=== PATIENT | male | born 1945 | race Caucasian/White ===

== ENCOUNTER → 2022-03-13 | Outpatient (CLI) | payer OTHER, SELFPAY ==
[~2022-03-13] MED LIST: AVALIDE 300-121 EACH PO; CARDURA 2MG TAB2 MG PO; CATAPRES 0.1MG0.1 MG PO; CO Q-10200 MG PO; ECOTRIN81 MG PO; FERROUS SULFAT325 M2 PO; HYDRALAZINE HCL25 MG PO; HYDRALAZINE HCL50 MG PO; ISOSORBIDE MONO30 MG PO; JANUMET 50-1,01 EACH PO; LANTUS INS100 UTS/M1 SC; LANTUS100 UNIT/1 SQ; LASIX40 MG PO; LORTAB 5-325 M1 EACH PO; LOTENSIN TAB 1010 MG PO; NITROSTAT0.4 MG SL; NORCO 10-325 T1 EACH PO; NORVASC 5 MG TAB5 MG PO; NORVASC10 MG PO; OMEPRAZOLE20 MG PO; PROTONIX 40 MG40 M1 PO; SIMVASTATIN20 MG PO; SYNTHROID75 MCG PO; UNITHROID50 MCG PO; VITAMIN B-121000 MCG PO; VITAMIN D31000 UNI1 PO; diclofenac gel TP
== END ==
LOC: RT 11:38
DX: Z01.810 Encounter for preprocedural cardiovascular examination (principal)
CPT/HCPCS: 93005

== ENCOUNTER → 2022-05-23 | Outpatient (CLI) | payer OTHER, SELFPAY | LOC: HEART 5 05-18 11:30 | DX: I25.119 Atherosclerotic heart disease of native coronary artery with unspecified angina pectoris (principal) | CPT/HCPCS: 93306 ==

== ENCOUNTER → 2022-05-23 | Outpatient (CLI) | payer OTHER | LOC: NM 05-19 09:00 | DX: I20.9 Angina pectoris, unspecified (principal) | CPT/HCPCS: 78452; 93017; A9502; J2785 ==